=== PATIENT | female | born 1980 | race Caucasian/White ===

== ENCOUNTER 2019-10-04 11:54 | Inpatient (IN) ==
[2019-10-04] MEDS ORDERED: Ketorolac 15 MG/ML VIAL IVP ONE (12:39)
[2019-10-04] MEDS ORDERED: 0.9 % Sodium Chloride 1,000 ML IVC ONE (12:39)
[2019-10-04 12:53] LABS: Bilirubin,Urine Negative (Negative); Blood,Urine Moderate (Negative); Clarity,Urine Cloudy (Clear); Color,Urine Yellow (Yellow); Glucose,Urine (UA) Normal (Normal); Ketones,Urine Negative (Negative); Leukocyte Esterase,Urine Large (Negative); Nitrite,Urine Positive (Negative); PH,Urine 8.5 pH Units (5.0-8.0); Protein,Urine 30 mg/dL (Neg-Trace); Specific Gravity,Urine 1.019 (1.010-1.025); Urobilinogen,Urine Normal (Normal)
[2019-10-04 12:55] LABS: Bacteria,Urine Many per hpf (None-Few); Hyaline Casts,Urine None Seen per lpf (None-Few); RBC,Urine 15-30 per hpf (0-3); Squamous Epithelial Cell,Urine Many per lpf (None-Few); WBC,Urine TNTC per hpf (0-3)
[2019-10-04] MEDS ORDERED: cefTRIAXone 1,000 MG in Water for inj. (sterile) 10 ML IVP ONE (12:58)
[2019-10-04 13:15] LABS: Basophils # 0.1 K/mcL (0.0-0.2); Basophils % 0.2 %; Hematocrit 37.2 % (35.3-44.9); Hemoglobin 12.5 g/dL (11.5-15.4); Immature Granulocytes % 0.7 % (0-4); Lymphocytes # 0.5 K/mcL (0.6-4.6); Lymphocytes % 2.5 %; Mean Corpuscular HGB Conc 33.6 g/dL (31.6-35.5); Mean Corpuscular Hemoglobin 29.3 pg (28.0-33.3); Mean Corpuscular Volume 87.1 fL (83.0-100.0); Mean Platelet Volume 9.1 fL (9.4-12.4); Monocytes # 0.9 K/mcL (0.0-1.3); Neutrophils # 19.5 K/mcL (1.6-8.9); Platelet Count 237 K/mcL (140-400); Red Blood Count 4.27 M/mcL (3.82-4.97); Red Cell Distribution Width 13.2 % (11.5-14.5); Segmented Neutrophils % 92.6 %; White Blood Count 21.1 K/mcL (4.3-11.1)
[2019-10-04 13:35] LABS: Albumin 4.5 g/dL (3.5-5.7); Bilirubin,Indirect 0.6 mg/dL (0.0-1.0); Bilirubin,Total 0.6 mg/dL (0.3-1.0); Calcium 9.6 mg/dL (8.6-10.3); Potassium 4.3 mEq/L (3.5-5.1); Total Protein 6.8 g/dL (6.4-8.9)
[2019-10-04 13:36] LABS: Globulin 2.3 g/dL (2.4-3.5)
[2019-10-04] MEDS ORDERED: Naloxone 0.4 MG/ML INJ IVP PRN ×2 (15:11→19:57)
[2019-10-04] MEDS ORDERED: Ringers Solution, Lactated 1,000 ML IVC SCH (15:15)
[2019-10-04] MEDS ORDERED: *HR* HYDROmorphone (PF) 1 MG/ML SYRINGE IVP ONE (15:28)
[2019-10-04] MEDS ORDERED: *HR* Propofol 200 MG/20 ML VIAL IVP ONE (18:29)
[2019-10-04] MEDS ORDERED: Ondansetron 4 MG/2 ML VIAL ONE (18:29)
[2019-10-04] MEDS ORDERED: Lidocaine -MPF 2% 2 ML VIAL ONE (18:29)
[2019-10-04] MEDS ORDERED: *HR* Succinylcholine 200 MG/10 ML VIAL IVP ONE (18:29)
[2019-10-04] MEDS ORDERED: Lidocaine HCL 4 ML Topical Solution (Laryng-O-Jet Kit Sterile Pak) TP ONE (18:29)
[2019-10-04] MEDS ORDERED: Dexamethasone 4 MG/ML VIAL ONE (18:29)
[2019-10-04] MEDS ORDERED: *HR* Midazolam HCl 2 MG/2 ML VIAL ONE (18:34)
[2019-10-04] MEDS ORDERED: *HR* FentaNYL (PF) 100 MCG/2 ML VIAL ONE (18:34)
[2019-10-04] MEDS ORDERED: Ondansetron 4 MG/2 ML VIAL IVP ONE ×2 (18:37→19:57)
[2019-10-04] MEDS ORDERED: *HR* OxyCODONE Immed Rel 5 MG TABLET PO PRN (18:37)
[2019-10-04] MEDS ORDERED: *HR* HYDROmorphone PF 0.5 MG/0.5 ML SYRINGE IVP PRN (18:37)
[2019-10-04] MEDS ORDERED: ALPRAZolam 0.5 MG TABLET PO SCH (21:00)
[2019-10-04] MEDS ORDERED: *HR* Rivaroxaban 10 MG TABLET PO SCH (21:00)
[2019-10-04] MEDS ORDERED: BuPROPion SR (12 HR) 150 MG TABLET PO SCH (21:00)
[2019-10-04] MEDS: *HR* Rivaroxaban 10 MG TABLET PO SCH (21:21)
[2019-10-04] MEDS: ALPRAZolam 0.5 MG TABLET PO SCH (21:22)
[2019-10-04] MEDS: BuPROPion SR (12 HR) 150 MG TABLET PO SCH (21:22)
[2019-10-04] MEDS: Ringers Solution, Lactated 1,000 ML IVC SCH (21:23)
[2019-10-05 06:44] LABS: Basophils % 0.2 %; Eosinophils % 0.2 %; Hematocrit 30.7 % (35.3-44.9); Immature Granulocytes % 7.2 % (0-4); Lymphocytes % 4.6 %; Mean Corpuscular HGB Conc 33.6 g/dL (31.6-35.5); Mean Corpuscular Hemoglobin 29.6 pg (28.0-33.3); Mean Corpuscular Volume 88.2 fL (83.0-100.0); Mean Platelet Volume 9.6 fL (9.4-12.4); Monocytes # 1.4 K/mcL (0.0-1.3); Monocytes % 6.1 %; Neutrophils # 18.6 K/mcL (1.6-8.9); Platelet Count 132 K/mcL (140-400); Red Blood Count 3.48 M/mcL (3.82-4.97); Red Cell Distribution Width 13.4 % (11.5-14.5); Segmented Neutrophils % 81.7 %; White Blood Count 22.7 K/mcL (4.3-11.1)
[2019-10-05 06:57] LABS: Basophils # 0.1 K/mcL (0.0-0.2); Eosinophils # 0.1 K/mcL (0.0-0.6); Hemoglobin 10.3 g/dL (11.5-15.4)
[2019-10-05 07:02] LABS: Calcium 8.6 mg/dL (8.6-10.3); Potassium 4.3 mEq/L (3.5-5.1)
[2019-10-05] MEDS: Ringers Solution, Lactated 1,000 ML IVC SCH (07:16)
[2019-10-05 07:18] LABS: Platelet Estimate Slight Decrease (Normal); Toxic Granulation Present (Not Present)
[2019-10-05] MEDS: ALPRAZolam 0.5 MG TABLET PO SCH ×3 (07:57→21:04)
[2019-10-05] MEDS: BuPROPion SR (12 HR) 150 MG TABLET PO SCH ×2 (07:57→21:03)
[2019-10-05] MEDS ORDERED: cefTRIAXone 1,000 MG in Water for inj. (sterile) 10 ML IVP SCH ×2 (09:00)
[2019-10-05] MEDS ORDERED: cefTRIAXone 1,000 MG in Water for inj. (sterile) 10 ML IVP ONE (13:58)
[2019-10-05] MEDS: 0.9 % Sodium Chloride 1,000 ML IVC SCH (18:12)
[2019-10-05] MEDS: *HR* Rivaroxaban 10 MG TABLET PO SCH (21:04)
[2019-10-06 01:55] LABS: Basophils % 0.1 %; Eosinophils # 0.1 K/mcL (0.0-0.6); Eosinophils % 0.3 %; Hematocrit 30.8 % (35.3-44.9); Immature Granulocytes % 5.1 % (0-4); Lymphocytes # 0.9 K/mcL (0.6-4.6); Lymphocytes % 5.9 %; Mean Corpuscular HGB Conc 32.5 g/dL (31.6-35.5); Mean Corpuscular Hemoglobin 28.8 pg (28.0-33.3); Mean Corpuscular Volume 88.8 fL (83.0-100.0); Mean Platelet Volume 9.8 fL (9.4-12.4); Monocytes % 5.3 %; Neutrophils # 13.2 K/mcL (1.6-8.9); Platelet Count 154 K/mcL (140-400); Red Blood Count 3.47 M/mcL (3.82-4.97); Red Cell Distribution Width 13.8 % (11.5-14.5); Segmented Neutrophils % 83.3 %; White Blood Count 15.9 K/mcL (4.3-11.1)
[2019-10-06 01:58] LABS: Monocytes # 0.8 K/mcL (0.0-1.3)
[2019-10-06] MEDS ORDERED: Acetaminophen 325 MG TABLET PO ONE (02:08)
[2019-10-06 02:31] LABS: Calcium 8.7 mg/dL (8.6-10.3); Platelet Estimate Slight Decrease (Normal); Toxic Granulation Present (Not Present)
[2019-10-06] MEDS: 0.9 % Sodium Chloride 1,000 ML IVC SCH ×2 (06:43→19:34)
[2019-10-06 08:05] LABS: Adenovirus Not Detected (Not Detect); Bordetella Pertussis Not Detected (Not Detect); Chlamydophila pneumoniae Not Detected (Not Detect); Coronavirus 229E Not Detected (Not Detect); Coronavirus HKU1 Not Detected (Not Detect); Coronavirus NL63 Not Detected (Not Detect); Coronavirus OC43 Not Detected (Not Detect); Human Metapneumovirus Not Detected (Not Detect); Human Rhinovirus/Enterovirus Not Detected (Not Detect); Influenza A Subtype 2009 H1 Not Detected (Not Detect); Influenza B Not Detected (Not Detect); Mycoplasma pneumoniae Not Detected (Not Detect); Parainfluenza Virus 1 Not Detected (Not Detect); Parainfluenza Virus 2 Not Detected (Not Detect); Parainfluenza Virus 3 Not Detected (Not Detect); Parainfluenza Virus 4 Not Detected (Not Detect); Respiratory Syncytial Virus Not Detected (Not Detect)
[2019-10-06] MEDS: BuPROPion SR (12 HR) 150 MG TABLET PO SCH ×2 (08:55→20:17)
[2019-10-06] MEDS: ALPRAZolam 0.5 MG TABLET PO SCH ×3 (08:55→20:17)
[2019-10-06] MEDS: cefTRIAXone 2,000 MG in Water for inj. (sterile) 20 ML IVP SCH (08:56)
[2019-10-06] MEDS: Sennosides 8.6 MG TABLET PO SCH ×2 (15:40→20:17)
[2019-10-06] MEDS: *HR* Rivaroxaban 10 MG TABLET PO SCH (20:17)
[2019-10-07 06:10] LABS: Basophils % 0.5 %; Eosinophils % 0.7 %; Hemoglobin 10.6 g/dL (11.5-15.4); Immature Granulocytes % 1.7 % (0-4); Lymphocytes % 16.2 %; Mean Corpuscular HGB Conc 32.1 g/dL (31.6-35.5); Mean Corpuscular Hemoglobin 28.2 pg (28.0-33.3); Mean Corpuscular Volume 87.8 fL (83.0-100.0); Monocytes # 0.4 K/mcL (0.0-1.3); Neutrophils # 4.4 K/mcL (1.6-8.9); Platelet Count 159 K/mcL (140-400); Red Blood Count 3.76 M/mcL (3.82-4.97); Red Cell Distribution Width 13.4 % (11.5-14.5); Segmented Neutrophils % 73.9 %
[2019-10-07 06:25] LABS: BUN/Creatinine Ratio 10 (6-26); Blood Urea Nitrogen 12 mg/dL (6-20); Carbon Dioxide 20 mEq/L (23-29); Chloride 107 mEq/L (98-107); Glucose 88 mg/dL (70-105); Osmolality,Calculated 279 (280-300); Potassium 4.1 mEq/L (3.5-5.1); Sodium 135 mEq/L (136-145); eGFR For African Americans > 60 (> 60); eGFR For Non-African Americans 53 (> 60)
[2019-10-07 06:39] LABS: Platelet Estimate Decreased (Normal)
[2019-10-07] MEDS: cefTRIAXone 2,000 MG in Water for inj. (sterile) 20 ML IVP SCH (08:02)
[2019-10-07] MEDS: Sennosides 8.6 MG TABLET PO SCH ×2 (08:04→20:41)
[2019-10-07] MEDS: BuPROPion SR (12 HR) 150 MG TABLET PO SCH ×2 (08:04→20:41)
[2019-10-07] MEDS: ALPRAZolam 0.5 MG TABLET PO SCH ×3 (08:04→20:42)
[2019-10-07] MEDS: 0.9 % Sodium Chloride 1,000 ML IVC SCH ×2 (08:11→21:40)
[2019-10-07] MEDS: *HR* Rivaroxaban 10 MG TABLET PO SCH (20:42)
[2019-10-08 06:40] VITALS: BP 110/74
[2019-10-08] MEDS ORDERED: BuPROPion SR (12 HR) 150 MG TABLET PO ONE (08:42)
[2019-10-08] MEDS ORDERED: CefTRIAXone 2,000 MG VIAL ONE (08:42)
[2019-10-08] MEDS ORDERED: ALPRAZolam 0.5 MG TABLET ONE (08:42)
[2019-10-08] MEDS ORDERED: Water for inj. (sterile) 20 ML VIAL IV ONE (08:42)
[2019-10-08] MEDS ORDERED: Sennosides 8.6 MG TABLET PO ONE (08:42)
== END 2019-10-08 17:42 | disposition home or self-care (01) | DRG 720 ==
LOC: EMEROOARM 11:54 → 3ANU 11:54 → SUATTDRO 15:57 → 3ANU 16:50
PROVIDERS: ADMIT Internal Medicine; ATTEND Internal Medicine